=== PATIENT | male | born 1940 | race Hispanic/Latino ===

== ENCOUNTER → 2017-09-24 | Outpatient (CLI) | payer OTHER ==
[~2017-09-24] MED LIST: ASPI-1005 PO; ATOR40TA71 PO; FURO20TA4 PO; GLIM2TAB3 PO; ISOS60TA4 PO; LOSA25TA21 PO; METO50TA18 PO; SAWP1CAP PO; TAMS0.4C32 PO; TYL3 PO
== END | disposition home or self-care (01) ==
LOC: SHCH 12:41
PROVIDERS: ATTEND Internal Medicine Cardiovascular Disease
DX: I35.0 Nonrheumatic aortic (valve) stenosis (principal); I34.0 Nonrheumatic mitral (valve) insufficiency
CPT/HCPCS: 93306

== ENCOUNTER → 2017-10-08 | Outpatient (CLI) | payer OTHER | END | disposition home or self-care (01) | LOC: SHCH 14:54 | PROVIDERS: ATTEND Internal Medicine Cardiovascular Disease | DX: I82.409 Acute embolism and thrombosis of unspecified deep veins of unspecified lower extremity (principal) | CPT/HCPCS: 93971 ==

== ENCOUNTER → 2018-08-19 | Outpatient (CLI) | payer OTHER ==
[~2018-08-19] MED LIST changes: -FURO20TA4 PO; -LOSA25TA21 PO; +LOSA25TA41 PO; -TYL3 PO
== END | disposition home or self-care (01) ==
LOC: OIH 10:08
PROVIDERS: ATTEND Internal Medicine
DX: I10 Essential (primary) hypertension (principal); M47.815 Spondylosis without myelopathy or radiculopathy, thoracolumbar region
CPT/HCPCS: 71046

== ENCOUNTER 2019-01-06 15:19 | Inpatient (IN) | payer OTHER ==
[2019-01-05 23:55] VITALS: BP 127/72
[~2019-01-06] VITALS: Ht 170.2 cm; Wt 84.6 kg
[2019-01-06] MEDS ORDERED: ASPIRIN 325 MG TABLET ONE (15:35)
[2019-01-06 15:56] LABS: BASOPHILS % (AUTO) 1.1 % (0.0-5.0); EOSINOPHILS % (AUTO) 1.6 % (0.0-8.0); HEMATOCRIT 38.5 % (42-54); LYMPHOCYTES % (AUTO) 26.5 % (21.0-51.0); MEAN CORPUSCULAR HEMOGLOBIN 29.6 pg (27.0-33.0); MEAN CORPUSCULAR HGB CONC 32.6 g/dL (32.0-36.0); MEAN CORPUSCULAR VOLUME 90.8 fL (79-99); MONOCYTES % (AUTO) 7.3 % (3.0-13.0); NEUTROPHILS % (AUTO) 63.5 % (40.0-77.0); PLATELET COUNT (AUTO) 198 K/uL (130-400); RED BLOOD CELL COUNT(AUTO) 4.24 MIL/uL (4.50-6.20); RED CELL DISTRIBUTION WIDTH 15.2 % (11.0-15.5); WHITE BLOOD COUNT (AUTO) 8.3 K/uL (4.8-10.8)
[2019-01-06 16:04] LABS: INR 1.05 (0.85-1.15); PARTIAL THROMBOPLASTIN TIME 26.4 SEC (26.3-35.5)
[2019-01-06 16:13] LABS: POTASSIUM 5.1 mmol/L (3.5-5.1)
[2019-01-06 16:21] LABS: B-TYPE NATRIURETIC PEPTIDE 1720 pg/mL (0-100)
[2019-01-06 16:24] LABS: ALBUMIN 3.7 g/dL (3.5-5.0); BILIRUBIN,TOTAL 0.6 mg/dL (0.2-1.0); TOTAL PROTEIN, SERUM 7.3 g/dL (6.0-8.3)
[2019-01-06] MEDS ORDERED: FUROSEMIDE 10 MG/ML 4ML VIAL ONE (16:27)
[2019-01-06 23:05] VITALS: BP 127/72
[2019-01-07 00:36] LABS: TROPONIN I 0.04 ng/mL (0.00-0.06)
[2019-01-07] MEDS ORDERED: FURO40TA5 PO (00:47)
[2019-01-07] MEDS ORDERED: CLON0.5T12 PO (00:47)
[2019-01-07] MEDS ORDERED: METO-391 PO (00:47)
[2019-01-07 04:00] VITALS: BP 118/68
[2019-01-07] MEDS: FUROSEMIDE 10 MG/ML 4ML VIAL IVP SCH ×2 (04:15→15:12)
[2019-01-07 05:23] LABS: HEMATOCRIT 38.5 % (42-54); MEAN CORPUSCULAR HEMOGLOBIN 30.5 pg (27.0-33.0); MEAN CORPUSCULAR HGB CONC 33.4 g/dL (32.0-36.0); MEAN CORPUSCULAR VOLUME 91.2 fL (79-99); PLATELET COUNT (AUTO) 181 K/uL (130-400); RED BLOOD CELL COUNT(AUTO) 4.22 MIL/uL (4.50-6.20); RED CELL DISTRIBUTION WIDTH 15.2 % (11.0-15.5); WHITE BLOOD COUNT (AUTO) 8.9 K/uL (4.8-10.8)
[2019-01-07 05:49] LABS: TROPONIN I 0.05 ng/mL (0.00-0.06)
[2019-01-07 05:50] LABS: B-TYPE NATRIURETIC PEPTIDE 1700 pg/mL (0-100)
[2019-01-07 06:35] LABS: CREATININE 1.9 mg/dL (0.5-1.5); POTASSIUM 4.3 mmol/L (3.5-5.1)
[2019-01-07 07:53] VITALS: BP 111/66
[2019-01-07 11:31] VITALS: BP 123/76
--- NOTE | 2019-01-07 11:57 | NUR ---
MD ELVIRA WOODS, VISITED WITH PATIENT. POC DISCUSSED. NEW ORDERS RECEIVED AND CARRIED OUT. PT WILL STAY ONE MORE DAY FOR OBS. 2DECHO CANCELLED. WILL CONTINUE TO MONITOR CLOSELY.
[2019-01-07] MEDS ORDERED: ASPIRIN 81MG TAB.CHEW PO SCH (12:30)
--- NOTE | 2019-01-07 15:33 | NUR ---
DCP CM met with pt discussed dc plans. Pt is independent prior to admission, lives at home with spouse and daughter. Denies any equipments/services. Pt feels safe to go back home, daughter able to assist with transportation and needs as necessary. DC plan to home once stable. CM to cont to follow up. Addendum: 01/07/19 at 1536 by HERIBERTO CAMILO LVN CM Amended: Links added.
[2019-01-07 16:03] VITALS: BP 103/59
[2019-01-07 20:00] VITALS: BP 98/66
[2019-01-08] VITALS (7 sets, daily range): BP systolic 94–111; BP diastolic 56–78
[2019-01-08 04:51] LABS: CREATININE 1.8 mg/dL (0.5-1.5); POTASSIUM 3.8 mmol/L (3.5-5.1)
[2019-01-08] MEDS: FUROSEMIDE 10 MG/ML 4ML VIAL IVP SCH ×2 (05:24→16:46)
[2019-01-08] MEDS: **HM** TOPROL XL 50MG PO SCH ×2 (09:00→21:00)
[2019-01-08] MEDS: ATORVASTATIN CALCIUM 40 MG TABLET PO SCH (09:49)
[2019-01-08] MEDS: ISOSORBIDE MONO 60 MG TAB.SR PO SCH (09:49)
[2019-01-08] MEDS: LOSARTAN 50 MG TABLET PO SCH (09:50)
[2019-01-09 04:30] VITALS: BP 97/60
[2019-01-09 06:24] LABS: BASOPHILS % (AUTO) 0.8 % (0.0-5.0); EOSINOPHILS % (AUTO) 2.9 % (0.0-8.0); HEMATOCRIT 36.1 % (42-54); LYMPHOCYTES % (AUTO) 31.8 % (21.0-51.0); MEAN CORPUSCULAR HEMOGLOBIN 30.2 pg (27.0-33.0); MEAN CORPUSCULAR HGB CONC 33.4 g/dL (32.0-36.0); MEAN CORPUSCULAR VOLUME 90.3 fL (79-99); MONOCYTES % (AUTO) 8.3 % (3.0-13.0); NEUTROPHILS % (AUTO) 56.2 % (40.0-77.0); PLATELET COUNT (AUTO) 196 K/uL (130-400); RED CELL DISTRIBUTION WIDTH 14.8 % (11.0-15.5); WHITE BLOOD COUNT (AUTO) 7.3 K/uL (4.8-10.8)
[2019-01-09 06:44] LABS: ALBUMIN 3.3 g/dL (3.5-5.0); BILIRUBIN,TOTAL 0.7 mg/dL (0.2-1.0); CREATININE 1.9 mg/dL (0.5-1.5); POTASSIUM 3.8 mmol/L (3.5-5.1); TOTAL PROTEIN, SERUM 6.6 g/dL (6.0-8.3)
[2019-01-09 07:39] VITALS: BP 99/70
[2019-01-09] MEDS: **HM** TOPROL XL 50MG PO SCH ×2 (09:00→21:00)
[2019-01-09] MEDS: LOSARTAN 50 MG TABLET PO SCH (10:43)
[2019-01-09] MEDS: ACETYLCYSTEINE 600 MG CAPSULE PO SCH ×3 (10:43→21:23)
[2019-01-09] MEDS: ISOSORBIDE MONO 60 MG TAB.SR PO SCH (10:44)
[2019-01-09] MEDS: FUROSEMIDE 40 MG TABLET PO SCH ×2 (10:44→18:03)
[2019-01-09] MEDS: ATORVASTATIN CALCIUM 40 MG TABLET PO SCH (10:44)
[2019-01-09 11:06] VITALS: BP 99/45
[2019-01-09 15:46] VITALS: BP 97/62
[2019-01-09 19:53] VITALS: BP 100/57
--- NOTE | 2019-01-09 21:10 | NUR ---
INCIDENTAL FINDING US REPORTED A INCIDENTAL FINDING OF A THROMBUS TO THE RIGHT INTERNAL JUGULAR VEIN-MADE DR Abraham GRIMES AWARE-STATED WILL WAIT FOR RADIOLOGIST REPORT-NO NEW ORDERS RECEIVED
[2019-01-09 23:34] VITALS: BP 97/53
[2019-01-10 04:03] VITALS: BP 85/57
[2019-01-10 07:06] LABS: HEMATOCRIT 37.5 % (42-54); MEAN CORPUSCULAR HEMOGLOBIN 30.3 pg (27.0-33.0); MEAN CORPUSCULAR HGB CONC 33.5 g/dL (32.0-36.0); MEAN CORPUSCULAR VOLUME 90.6 fL (79-99); NUCLEATED RED BLOOD CELLS 0.1 % (0.0-0.19); PLATELET COUNT (AUTO) 175 K/uL (130-400); RED BLOOD CELL COUNT(AUTO) 4.14 MIL/uL (4.50-6.20); RED CELL DISTRIBUTION WIDTH 14.9 % (11.0-15.5); WHITE BLOOD COUNT (AUTO) 6.6 K/uL (4.8-10.8)
[2019-01-10 07:39] LABS: CARBON DIOXIDE 25 mmol/L (21-32); CHLORIDE 104 mmol/L (101-111); CREATINE KINASE, TOTAL 125 U/L (21-232); CREATININE 1.8 mg/dL (0.5-1.5); GLOMERULAR FILTR. RATE CALC 39 mL/min (>60); GLUCOSE,RANDOM 100 mg/dL (70-105); MYOGLOBIN 197 ng/mL (10-92); POTASSIUM 3.7 mmol/L (3.5-5.1); SODIUM SERUM 139 mmol/L (136-145); TROPONIN I < 0.04 ng/mL (0.00-0.06); UREA NITROGEN, BLOOD 59 mg/dL (7-18)
[2019-01-10 07:53] VITALS: BP 91/54
[2019-01-10 07:56] LABS: INR 1.09 (0.85-1.15); PARTIAL THROMBOPLASTIN TIME 26.5 SEC (26.3-35.5); PROTHROMBIN TIME 11.4 SEC (9.6-11.6)
[2019-01-10] MEDS: **HM** TOPROL XL 50MG PO SCH ×2 (09:00→21:00)
[2019-01-10] MEDS: ACETYLCYSTEINE 600 MG CAPSULE PO SCH ×2 (09:33→22:16)
[2019-01-10] MEDS: FUROSEMIDE 40 MG TABLET PO SCH ×2 (09:33→17:00)
[2019-01-10] MEDS: ATORVASTATIN CALCIUM 40 MG TABLET PO SCH (09:33)
[2019-01-10] MEDS: ISOSORBIDE MONO 60 MG TAB.SR PO SCH (09:33)
[2019-01-10] MEDS: LOSARTAN 50 MG TABLET PO SCH (09:33)
[2019-01-10 11:26] VITALS: BP 109/61
[2019-01-10 16:00] VITALS: BP 90/54
[2019-01-10] MEDS ORDERED: NITROGLYCERIN 5 MG/ML 10 ML VIAL IV ONE (16:27)
[2019-01-10] MEDS ORDERED: IOHEXOL 350 MG/ML 100ML INFUS..BTL IV ONE (16:27)
[2019-01-10] MEDS ORDERED: LIDOCAINE HCL 2% 20ML ONE (16:27)
--- NOTE | 2019-01-10 16:35 | NUR ---
PATIENT TRANSFERRED TO LUNCH TRUCK DRIVER DR. GRIMES TO PERFORM RIGHT / LEFT HEART CATH.
[2019-01-10] MEDS ORDERED: DOBUTAMINE 250MG/D5 250ML 250 ML IV ONE (18:01)
[2019-01-10] MEDS ORDERED: HEPARIN SODIUM 1000UNIT/ML 10ML VIAL ONE (18:17)
[2019-01-10] MEDS ORDERED: BIVALIRUDIN 250 MG/VIAL IV ONE (18:57)
[2019-01-10] MEDS ORDERED: ASPIRIN 325MG EC TAB 325 MG TABLET.DR PO ONE (19:02)
[2019-01-10] MEDS ORDERED: CLOPIDOGREL BISULFATE 300 MG TAB ONE (19:02)
[2019-01-10] MEDS ORDERED: MORPHINE SULFATE 4 MG/1ML SYG ONE (19:09)
[2019-01-10] MEDS ORDERED: ONDANSETRON HCL 4 MG/2 ML VIAL IVP PRN (20:00)
[2019-01-10] MEDS ORDERED: ACETAMINOPHEN-CODEINE 300/30MG TAB PO PRN ×2 (20:00)
[2019-01-10] MEDS ORDERED: CLOPIDOGREL BISULFATE 300 MG TAB PO SCH (20:00)
[2019-01-10] MEDS ORDERED: DOPAMINE HCL 400 MG/D5%-WATER 250 ML IV ONE (20:19)
[2019-01-10] MEDS ORDERED: DOPAMINE HCL 800 MG in SODIUM CHLORIDE 0.9% 240 ML IV SCH (20:30)
[2019-01-10 20:45] VITALS: BP 113/55
[2019-01-10] MEDS: FUROSEMIDE 10 MG/ML 4ML VIAL IV SCH (22:17)
[2019-01-10 23:30] VITALS: BP 117/60
[2019-01-11 04:11] LABS: CREATININE 1.8 mg/dL (0.5-1.5); POTASSIUM 4.2 mmol/L (3.5-5.1)
[2019-01-11 05:10] VITALS: BP 104/65
[2019-01-11 07:58] VITALS: BP 106/61
[2019-01-11] MEDS ORDERED: ASPIRIN 81MG TAB.CHEW PO SCH (09:00)
[2019-01-11] MEDS ORDERED: CLOPIDOGREL BISULFATE 75 MG TAB PO SCH (09:00)
[2019-01-11] MEDS: **HM** TOPROL XL 50MG PO SCH (09:00)
[2019-01-11] MEDS: ATORVASTATIN CALCIUM 40 MG TABLET PO SCH (09:05)
[2019-01-11] MEDS: ACETYLCYSTEINE 600 MG CAPSULE PO SCH (09:05)
[2019-01-11] MEDS: FUROSEMIDE 10 MG/ML 4ML VIAL IV SCH (09:06)
[2019-01-11 11:50] VITALS: BP 116/51
[2019-01-11 15:33] VITALS: BP 129/59
--- NOTE | 2019-01-11 16:18 | NUR ---
PER DR SOL AND DR GRIMES, PATIENT MAY BE DISCHARGED HOME AT THIS TIME; DR GRIMES STATED HE IS ALREADY AWARE OF PATIENT'S THROMBUS TO RIGHT IJ; FOLLOW UP APPOINTMENTS AND PRESCRIPTIONS TO BE GIVEN TO PATIENT BEFORE DISCHARGE TODAY
--- NOTE | 2019-01-11 18:30 | NUR ---
PATIENT DISCHARGED HOME WITH PRESCRIPTIONS AND APPT TO SEE DR GRIMES; PATIENT TO CALL OFFICE TO FOLLOW UP WITH DR SOL IN 3-4 DAYS; PIVX2 AND TELEPACK REMOVED. ALL QUESTIONS ANSWERED.
== END 2019-01-11 19:01 | disposition home or self-care (01) | DRG 246 ==
LOC: EDH 15:19 → OBSVTOIN 18:25 → EDHIP 18:25 → 3DH 23:39 → 2DH 01-10 21:00
PROVIDERS: ADMIT Internal Medicine; ATTEND Internal Medicine
PROC: 027034Z Dilation of Coronary Artery, One Artery with Drug-eluting Intraluminal Device, Percutaneous Approach (ICD-10-PCS; principal; 2019-01-10)
PROC: 4A023N8 Measurement of Cardiac Sampling and Pressure, Bilateral, Percutaneous Approach (ICD-10-PCS; 2019-01-10)
PROC: B2111ZZ Fluoroscopy of Multiple Coronary Arteries using Low Osmolar Contrast (ICD-10-PCS; 2019-01-10)
PROC: B2181ZZ Fluoroscopy of Left Internal Mammary Bypass Graft using Low Osmolar Contrast (ICD-10-PCS; 2019-01-10)
PROC: B2121ZZ Fluoroscopy of Single Coronary Artery Bypass Graft using Low Osmolar Contrast (ICD-10-PCS; 2019-01-10)
DX: T82.855A Stenosis of coronary artery stent, initial encounter (principal); I50.43 Acute on chronic combined systolic (congestive) and diastolic (congestive) heart failure; I13.0 Hypertensive heart and chronic kidney disease with heart failure and stage 1 through stage 4 chronic kidney disease, or unspecified chronic kidney disease; N18.4 Chronic kidney disease, stage 4 (severe); N17.9 Acute kidney failure, unspecified; I25.10 Atherosclerotic heart disease of native coronary artery without angina pectoris; E11.22 Type 2 diabetes mellitus with diabetic chronic kidney disease; I25.5 Ischemic cardiomyopathy; E78.5 Hyperlipidemia, unspecified; I08.0 Rheumatic disorders of both mitral and aortic valves; I27.20 Pulmonary hypertension, unspecified; I49.3 Ventricular premature depolarization; T50.2X5A Adverse effect of carbonic-anhydrase inhibitors, benzothiadiazides and other diuretics, initial encounter; Y83.1 Surgical operation with implant of artificial internal device as the cause of abnormal reaction of the patient, or of later complication, without mention of misadventure at the time of the procedure; Z79.899 Other long term (current) drug therapy; Z87.891 Personal history of nicotine dependence; Z91.11 Patient's noncompliance with dietary regimen; Z91.14 Patient's other noncompliance with medication regimen; Z91.19 Patient's noncompliance with other medical treatment and regimen; Z95.810 Presence of automatic (implantable) cardiac defibrillator; Z95.1 Presence of aortocoronary bypass graft; Y92.89 Other specified places as the place of occurrence of the external cause
CPT/HCPCS: 36415; 71045; 80048; 80053; 82550; 82948; 83874; 83880; 84484; 85025; 85027; 85610; 85730; 93005; 93306; 93461; 93463; 93880; 93925; 99291; C1725; C1760; C1769; C1887; C1893; C1894; C9604; G0378; J0583; J1250; J1265; J1644; J1940; J2270; J2405; J3490; Q9967

== ENCOUNTER 2019-02-07 06:31 | Day surgery (SDC) | payer OTHER ==
[~2019-02-07 06:31] MED LIST changes: -ASPI-1005 PO; +CLON0.5T12 PO; -ISOS60TA4 PO; +METO-391 PO; -METO50TA18 PO; -SAWP1CAP PO; +SODIUM CHLORIDE 0.9% 1000ML 1,000 ML IV ONE
[2019-02-07 07:02] VITALS: BP 96/55
--- NOTE | 2019-02-07 07:11 | NUR ---
SKIN ASSESSMENT EDEMA NOTED TO BILATERAL LOWER EXTREMITIES. 1+ EDEMA NOTED. Addendum: 02/07/19 at 0721 by KAYLEIGH HIALRIO RN RN Amended: Links added.
--- NOTE | 2019-02-07 11:30 | NUR ---
CT PT TAKEN TO CT DEPT BY PRIVATE EQUITY ANALYST.
[2019-02-07] MEDS ORDERED: IOHEXOL 350 MG/ML 100ML INFUS..BTL IV ONE (11:43)
[2019-02-07 13:30] VITALS: BP 104/65
--- NOTE | 2019-02-07 13:30 | NUR ---
PT PT RETURNED FROM CT DEPT. AAOX3. DENIES ANY PROBLEMS. AT BEDSIDE. LUNG SOUNDS CLEAR TO AUSCULTATION
== END 2019-02-07 13:50 | disposition home or self-care (01) ==
LOC: DAH 06:31
PROVIDERS: ATTEND Internal Medicine Cardiovascular Disease
DX: I25.5 Ischemic cardiomyopathy (principal); J90 Pleural effusion, not elsewhere classified; I25.10 Atherosclerotic heart disease of native coronary artery without angina pectoris; I35.0 Nonrheumatic aortic (valve) stenosis; Z95.1 Presence of aortocoronary bypass graft
CPT/HCPCS: 74174; 75574; 82948; J7030; Q9967; 96360; 96361

== ENCOUNTER 2019-02-08 08:14 | Observation (INO) | payer OTHER ==
[~2019-02-08] VITALS: Ht 170.2 cm; Wt 83.1 kg
[~2019-02-08 08:14] MED LIST changes: -SODIUM CHLORIDE 0.9% 1000ML 1,000 ML IV ONE
[2019-02-08] MEDS ORDERED: ASPIRIN 325 MG TABLET ONE (08:34)
[2019-02-08 08:44] LABS: BASOPHILS % (AUTO) 0.8 % (0.0-5.0); EOSINOPHILS % (AUTO) 1.9 % (0.0-8.0); HEMATOCRIT 35.6 % (42-54); LYMPHOCYTES % (AUTO) 23.8 % (21.0-51.0); MEAN CORPUSCULAR HEMOGLOBIN 30.3 pg (27.0-33.0); MEAN CORPUSCULAR HGB CONC 33.6 g/dL (32.0-36.0); MONOCYTES % (AUTO) 6.2 % (3.0-13.0); NEUTROPHILS % (AUTO) 67.3 % (40.0-77.0); PLATELET COUNT (AUTO) 147 K/uL (130-400); RED BLOOD CELL COUNT(AUTO) 3.95 MIL/uL (4.50-6.20); RED CELL DISTRIBUTION WIDTH 14.6 % (11.0-15.5); WHITE BLOOD COUNT (AUTO) 6.6 K/uL (4.8-10.8)
[2019-02-08 08:52] LABS: POTASSIUM 4.2 mmol/L (3.5-5.1)
[2019-02-08 08:57] LABS: ALBUMIN 3.7 g/dL (3.5-5.0); BILIRUBIN,TOTAL 0.7 mg/dL (0.2-1.0)
[2019-02-08] MEDS ORDERED: NITROGLYCERIN 50 MG/D5% WATER 1 BOT ONE (09:04)
[2019-02-08 09:13] LABS: APPEARANCE,URINE Clear (CLEAR); BILIRUBIN,URINE Negative (NEGATIVE); COLOR,URINE Yellow (YELLOW); GLUCOSE, URINE (UA) Negative (NEGATIVE); KETONES,URINE Negative (NEGATIVE); LEUKOCYTE ESTERASE ,URINE Negative (NEGATIVE); NITRATE,URINE Negative (NEGATIVE); OCCULT BLOOD,URINE Small (NEGATIVE); PROTEIN,URINE Negative (NEGATIVE)
[2019-02-08 09:15] LABS: INR 1.09 (0.85-1.15); PARTIAL THROMBOPLASTIN TIME 27.1 SEC (26.3-35.5); PROTHROMBIN TIME 11.4 SEC (9.6-11.6)
[2019-02-08 09:22] LABS: B-TYPE NATRIURETIC PEPTIDE 1290 pg/mL (0-100)
[2019-02-08 09:41] LABS: BACTERIA,URINE Rare /HPF (None Seen); RBC,URINE 0-1 /HPF (0-1); SQUAMOUS EPITHELIAL CELL,UR Rare /HPF (0-2); WBC,URINE 0-1 /HPF (0-1)
[2019-02-08] MEDS ORDERED: FUROSEMIDE 10 MG/ML 2ML VIAL ONE (09:43)
[2019-02-08] MEDS ORDERED: NITROGLYCERIN 1GM/1 INCH PACKET TD ONE (11:36)
[2019-02-08 22:13] VITALS: BP 106/84
--- NOTE | 2019-02-08 22:13 | NUR ---
NURSING NOTE PT ARRIVED TO UNIT FROM ER. PT SET UP TO OXYGEN 2L NC. PT DENIES SOB AT THIS TIME ONLY WITH EXERTION. PT UNABLE TO LET ME KNOW HOME MEDICATIONS TAKING BECAUSE HIS DAUGHTER IS THE ONE RESPONSIBLE FOR THE MEDICATIONS AND KNOWS WHAT HE TAKES. MEDICATIONS AT BEDSIDE WITH PT, DAUGHTER TO COME TOMORROW TO DISCUSS THE MEDICATIONS.
[2019-02-09] VITALS: BP_SYST 111; BP_SYST 119; BP_DIAS 68; BP_DIAS 76
[2019-02-09] MEDS: FUROSEMIDE 10 MG/ML 4ML VIAL IVP SCH ×3 (00:55→11:15)
[2019-02-09 04:08] VITALS: BP 93/55
[2019-02-09 05:51] LABS: HEMATOCRIT 34.9 % (42-54); MEAN CORPUSCULAR HEMOGLOBIN 30.3 pg (27.0-33.0); MEAN CORPUSCULAR HGB CONC 33.6 g/dL (32.0-36.0); NUCLEATED RED BLOOD CELLS 0.1 % (0.0-0.19); PLATELET COUNT (AUTO) 142 K/uL (130-400); RED BLOOD CELL COUNT(AUTO) 3.88 MIL/uL (4.50-6.20); RED CELL DISTRIBUTION WIDTH 14.4 % (11.0-15.5)
[2019-02-09 05:55] LABS: CREATININE 1.9 mg/dL (0.5-1.5); POTASSIUM 3.8 mmol/L (3.5-5.1)
[2019-02-09 06:24] LABS: BASOPHILS % (MANUAL) 1 % (0-2); EOSINOPHILS % (MANUAL) 4 % (1-6); LYMPHOCYTES % (MANUAL) 31 % (22-44); MAN.DIFF COMMENT-IMPRESSION MANUAL DIFFERENTIAL; MONOCYTES % (MANUAL) 9 % (2-9); SEGMENTED NEUTROPHILS % 55 % (40-70)
[2019-02-09 06:25] LABS: PLATELET MORPHOLOGY COMMENT ADEQUATE
[2019-02-09 08:32] VITALS: BP 98/64
[2019-02-09 11:52] VITALS: BP 106/63
--- NOTE | 2019-02-09 15:55 | NUR ---
PT D/C HOME USING TEACH BACK TECHNIQUE RE; HOME MEDS, S/S TO WATCH FOR AND WHEN TO CALL MD OR 911. IV OUT INTACT, NO DISTRESS NO BLEEDING, NO SOB, AAOX3. DENIES ANY DISTRESS OR CONCERNS WILL FOLLOW UP WITH; FOLLOW UP WITH YOUR PRIMARY DOCTOR EBENEZER ON 02/17/2019 AT 09:00AM. FOLLOW UP WITH MR DORSEY CHUCK AT PM 02/14/2019 AT 11:20 AM, CALL TO SET UP AN APPOINTMENT AT PHONE; [phone]. WILL DISCUSS ABOUT POSSIBLE SURGERY IN 1 WEEK. IF HAVING SHORTNESS OF BREATH OR CHEST PAIN THAT DOES NOT RESOLVE WITH REST CALL 911. CONTINUE ALL CURRENT HOME MEDS.
== END 2019-02-09 15:55 | disposition home or self-care (01) ==
LOC: EDH 08:14 → EDHIP 10:55 → 3CH 22:38
PROVIDERS: ADMIT Internal Medicine; ATTEND Internal Medicine
DX: I13.0 Hypertensive heart and chronic kidney disease with heart failure and stage 1 through stage 4 chronic kidney disease, or unspecified chronic kidney disease (principal); N18.9 Chronic kidney disease, unspecified; I50.43 Acute on chronic combined systolic (congestive) and diastolic (congestive) heart failure; E11.22 Type 2 diabetes mellitus with diabetic chronic kidney disease; N17.9 Acute kidney failure, unspecified; E78.5 Hyperlipidemia, unspecified; I25.10 Atherosclerotic heart disease of native coronary artery without angina pectoris; I35.0 Nonrheumatic aortic (valve) stenosis; Z87.891 Personal history of nicotine dependence; Z95.1 Presence of aortocoronary bypass graft; Z95.5 Presence of coronary angioplasty implant and graft; Z79.899 Other long term (current) drug therapy
CPT/HCPCS: 36415 ×2; 71045; 80048; 80053; 81001; 82550; 82948 ×3; 83880; 84484; 85025 ×2; 85610; 85730; 93005; 96374; 96376; 99284; G0378 ×29; J1940 ×3; J3490

== ENCOUNTER 2019-03-24 03:19 | Observation (INO) | payer OTHER ==
[~2019-03-24] VITALS: Ht 170.2 cm; Wt 81.0 kg
[2019-03-24 03:10] VITALS: BP 119/64
[2019-03-24 03:47] LABS: BASOPHILS % (AUTO) 0.4 % (0.0-5.0); EOSINOPHILS % (AUTO) 0.2 % (0.0-8.0); HEMATOCRIT 34.2 % (42-54); LYMPHOCYTES % (AUTO) 16.7 % (21.0-51.0); MEAN CORPUSCULAR HEMOGLOBIN 29.1 pg (27.0-33.0); MEAN CORPUSCULAR HGB CONC 32.7 g/dL (32.0-36.0); MEAN CORPUSCULAR VOLUME 89.2 fL (79-99); MONOCYTES % (AUTO) 5.1 % (3.0-13.0); NEUTROPHILS % (AUTO) 77.6 % (40.0-77.0); NUCLEATED RED BLOOD CELLS 0.1 % (0.0-0.19); PLATELET COUNT (AUTO) 146 K/uL (130-400); RED BLOOD CELL COUNT(AUTO) 3.83 MIL/uL (4.50-6.20); RED CELL DISTRIBUTION WIDTH 15.3 % (11.0-15.5); WHITE BLOOD COUNT (AUTO) 6.8 K/uL (4.8-10.8)
[2019-03-24 03:53] LABS: CREATININE 1.6 mg/dL (0.5-1.5); POTASSIUM 4.6 mmol/L (3.5-5.1)
[2019-03-24] MEDS ORDERED: FUROSEMIDE 10 MG/ML 2ML VIAL ONE (03:56)
[2019-03-24 03:58] LABS: ALBUMIN 3.5 g/dL (3.5-5.0); BILIRUBIN,TOTAL 0.9 mg/dL (0.2-1.0); INR 1.13 (0.85-1.15); PARTIAL THROMBOPLASTIN TIME 25.2 SEC (26.3-35.5); PROTHROMBIN TIME 11.8 SEC (9.6-11.6)
[2019-03-24 04:18] LABS: B-TYPE NATRIURETIC PEPTIDE 1640 pg/mL (0-100)
[2019-03-24] MEDS ORDERED: PANT40TA25 PO (05:29)
[2019-03-24] MEDS ORDERED: METO25TA6 PO (05:29)
[2019-03-24] MEDS ORDERED: PRED20TA3 PO (05:29)
[2019-03-24] MEDS ORDERED: CLOP75TA32 PO (05:29)
[2019-03-24] MEDS ORDERED: AEC81 PO (05:29)
[2019-03-24] MEDS ORDERED: NITR0.4T50 SL (05:29)
[2019-03-24] MEDS ORDERED: NITROGLYCERIN 0.4 MG SL TAB SL SCH (05:30)
[2019-03-24] MEDS ORDERED: GLIMEPIRIDE 2 MG TABLET PO SCH (07:30)
[2019-03-24] MEDS ORDERED: PANTOPRAZOLE SODIUM 40 MG TABLET.DR PO SCH (07:30)
[2019-03-24 08:00] VITALS: BP 110/67
[2019-03-24] MEDS ORDERED: ASPIRIN 81 MG EC TAB PO SCH (09:00)
[2019-03-24] MEDS ORDERED: PREDNISONE 20 MG TABLET PO SCH (09:00)
[2019-03-24] MEDS ORDERED: TAMSULOSIN HCL 0.4 MG CAP.ER.24H PO SCH (09:00)
[2019-03-24] MEDS ORDERED: CLOPIDOGREL BISULFATE 75 MG TAB PO SCH (09:00)
[2019-03-24] MEDS ORDERED: METOPROLOL TARTRATE 25 MG TAB PO SCH (09:00)
[2019-03-24 12:00] VITALS: BP 101/60
[2019-03-24] MEDS ORDERED: FUROSEMIDE 10 MG/ML 4ML VIAL IVP SCH (12:00)
--- NOTE | 2019-03-24 12:50 | NUR ---
DR CARTER CLAYTON SPOKE TO PATIENT AND NURSE SAYS IF PATIENT FEELS GOOD AND WALKS AROUND UNIT OK TO GO HOME, IN THE AFTERNOON AFTER DINNER. PATIENT VERBALIZED UNDERSTANDING.
--- NOTE | 2019-03-24 13:07 | NUR ---
DCP CM met with pt discussed dc plans. Pt is independent prior to admission, lives at home with spouse and daughter. Denies any equipments/services. Pt feels safe to go back home, spouse and daughter able to assist with transportation and needs as necessary. DC plan to home once stable. CM to cont to follow up. Addendum: 03/24/19 at 1308 by HERIBERTO CAMILO LVN CM Amended: Links added.
--- NOTE | 2019-03-24 16:50 | NUR ---
DISCHARGE DR MACHADO AND PCP DR KOCH, ORDER GIVEN FOR DISCHARGE HOME. ORDER NOTED AND CARRIED OUT.
[2019-03-24 16:56] VITALS: BP 101/60
== END 2019-03-24 17:20 | disposition home or self-care (01) ==
LOC: EDH 03:19 → EDHIP 04:28 → 3AH 04:41
PROVIDERS: ADMIT Internal Medicine; ATTEND Internal Medicine
DX: R06.03 Acute respiratory distress (principal); I11.0 Hypertensive heart disease with heart failure; I50.9 Heart failure, unspecified; I25.10 Atherosclerotic heart disease of native coronary artery without angina pectoris; E78.5 Hyperlipidemia, unspecified; E11.9 Type 2 diabetes mellitus without complications; Z95.1 Presence of aortocoronary bypass graft; Z95.2 Presence of prosthetic heart valve; Z95.5 Presence of coronary angioplasty implant and graft; Z95.810 Presence of automatic (implantable) cardiac defibrillator; Z87.891 Personal history of nicotine dependence
CPT/HCPCS: 36415; 71045; 80053; 82550; 82948; 83880; 84484; 85025; 85610; 85730; 93005; 96374; 99291; G0378 ×13; J1940 ×2

== ENCOUNTER → 2019-08-30 | Outpatient (CLI) | payer OTHER ==
[~2019-08-30] MED LIST changes: +AEC81 PO; -ATOR40TA71 PO; -CLON0.5T12 PO; +CLON0.5T4 PO; +CLOP75TA32 PO; -GLIM2TAB3 PO; +GLIM2TAB30 PO; -LOSA25TA41 PO; -METO-391 PO; +METO25TA6 PO; +NITR0.4T50 SL; +PANT40TA25 PO; +PRED20TA3 PO
== END | disposition home or self-care (01) ==
LOC: OIH 11:32
PROVIDERS: ATTEND Internal Medicine
DX: M47.814 Spondylosis without myelopathy or radiculopathy, thoracic region (principal); M25.78 Osteophyte, vertebrae; M48.04 Spinal stenosis, thoracic region; Z95.0 Presence of cardiac pacemaker; Z98.890 Other specified postprocedural states; Z95.2 Presence of prosthetic heart valve
CPT/HCPCS: 72070

== ENCOUNTER → 2019-10-12 | Outpatient (CLI) | payer OTHER | END | disposition home or self-care (01) | LOC: OIH 13:08 | PROVIDERS: ATTEND Internal Medicine | DX: M17.11 Unilateral primary osteoarthritis, right knee (principal) | CPT/HCPCS: 73560 ==

== ENCOUNTER 2020-01-20 03:35 | Observation (INO) | payer OTHER ==
[2020-01-20] MEDS ORDERED: DEXTROSE 50%-WATER 50 ML DISP.SYRIN IV ONE ×2 (03:52→06:08)
[2020-01-20 04:12] LABS: BASOPHILS % (AUTO) 0.4 % (0.0-5.0); EOSINOPHILS % (AUTO) 1.1 % (0.0-8.0); HEMATOCRIT 36.7 % (42-54); LYMPHOCYTES % (AUTO) 19.4 % (21.0-51.0); MEAN CORPUSCULAR HEMOGLOBIN 28.5 pg (27.0-33.0); MEAN CORPUSCULAR HGB CONC 31.9 g/dL (32.0-36.0); MEAN CORPUSCULAR VOLUME 89.5 fL (79-99); MONOCYTES % (AUTO) 6.4 % (3.0-13.0); NEUTROPHILS % (AUTO) 72.3 % (40.0-77.0); PLATELET COUNT (AUTO) 172 K/uL (130-400); RED CELL DISTRIBUTION WIDTH 15.1 % (11.0-15.5); WHITE BLOOD COUNT (AUTO) 7.2 K/uL (4.8-10.8)
[2020-01-20 04:15] LABS: APPEARANCE,URINE Clear (CLEAR); BILIRUBIN,URINE Negative (NEGATIVE); COLOR,URINE Yellow (YELLOW); GLUCOSE, URINE (UA) Negative (NEGATIVE); KETONES,URINE Negative (NEGATIVE); LEUKOCYTE ESTERASE ,URINE Negative (NEGATIVE); NITRATE,URINE Negative (NEGATIVE); OCCULT BLOOD,URINE Trace (NEGATIVE); PROTEIN,URINE Negative (NEGATIVE); UROBILINOGEN,URINE 0.2 mg/dL (0.2-1.0)
[2020-01-20 04:22] LABS: BACTERIA,URINE None Seen /HPF (None Seen); RBC,URINE 0-1 /HPF (0-1); SQUAMOUS EPITHELIAL CELL,UR Rare /HPF (0-2); WBC,URINE None Seen /HPF (0-1)
[2020-01-20 04:24] LABS: AMPHET/METH SCREEN,URINE NEGATIVE (NEGATIVE); BARBITURATE SCREEN, URINE NEGATIVE (NEGATIVE); BENZODIAZEPINES SCREEN,URINE NEGATIVE (NEGATIVE); CANNABINOID SCREEN,URINE NEGATIVE (NEGATIVE); COCAINE SCREEN,URINE NEGATIVE (NEGATIVE); OPIATE SCREEN,URINE NEGATIVE (NEGATIVE); PHENCYCLIDINE SCREEN,URINE NEGATIVE (NEGATIVE)
[2020-01-20 04:29] LABS: INR 1.01 (0.85-1.15); PROTHROMBIN TIME 10.9 SEC (9.6-11.6)
[2020-01-20 04:33] LABS: ALBUMIN 4.1 g/dL (3.5-5.0); BILIRUBIN,TOTAL 0.5 mg/dL (0.2-1.0); CREATININE 2.1 mg/dL (0.5-1.5); POTASSIUM 4.1 mmol/L (3.5-5.1); TOTAL PROTEIN, SERUM 7.3 g/dL (6.0-8.3)
[2020-01-20] MEDS ORDERED: INSULIN R PO SS1 SQ SCH (07:30)
[2020-01-20] MEDS ORDERED: METO-408 PO (11:14)
[2020-01-20] MEDS ORDERED: ATOR40TA71 PO (11:14)
== END 2020-01-20 13:26 | disposition home or self-care (01) ==
LOC: EDH 03:35 → EDHIP 06:25
PROVIDERS: ADMIT Internal Medicine; ATTEND Internal Medicine
DX: E11.649 Type 2 diabetes mellitus with hypoglycemia without coma (principal); I11.0 Hypertensive heart disease with heart failure; I50.9 Heart failure, unspecified; I25.810 Atherosclerosis of coronary artery bypass graft(s) without angina pectoris; E78.5 Hyperlipidemia, unspecified
CPT/HCPCS: 36415; 71045; 80053; 80305; 81001; 82550; 82948 ×6; 83721; 84484; 85025; 85610; 85730; 93005; 99285; G0378 ×7; J7070 ×2

== ENCOUNTER → 2020-03-07 | Outpatient (CLI) | payer OTHER ==
[~2020-03-07] MED LIST changes: +ATOR40TA71 PO; -CLON0.5T4 PO; +METO-408 PO; -METO25TA6 PO; -PANT40TA25 PO; -PRED20TA3 PO
== END | disposition home or self-care (01) ==
LOC: SHCH 08:35
PROVIDERS: ATTEND Internal Medicine Cardiovascular Disease
DX: I08.1 Rheumatic disorders of both mitral and tricuspid valves (principal); Z95.2 Presence of prosthetic heart valve
CPT/HCPCS: 93306; 93356

== ENCOUNTER → 2021-01-14 | Outpatient (CLI) | payer OTHER | END | disposition home or self-care (01) | LOC: OIH 14:42 | PROVIDERS: ATTEND Internal Medicine | DX: M79.671 Pain in right foot (principal); R05 Cough; I51.7 Cardiomegaly | CPT/HCPCS: 71045; 73620 ==

== ENCOUNTER → 2022-08-28 | Outpatient (CLI) | payer OTHER | END | disposition home or self-care (01) | LOC: SHCH 12:33 | PROVIDERS: ATTEND Internal Medicine Cardiovascular Disease | DX: I87.2 Venous insufficiency (chronic) (peripheral) (principal) | CPT/HCPCS: 93970 ==

== ENCOUNTER → 2023-10-23 | Outpatient (CLI) | payer OTHER | END | disposition home or self-care (01) | LOC: RAH 12:59 | PROVIDERS: ATTEND Internal Medicine | DX: I82.402 Acute embolism and thrombosis of unspecified deep veins of left lower extremity (principal); I82.4Z9 Acute embolism and thrombosis of unspecified deep veins of unspecified distal lower extremity; M79.605 Pain in left leg | CPT/HCPCS: 73620; 93971 ==

== ENCOUNTER 2024-06-02 05:51 | Day surgery (SDC) | payer OTHER, MEDICARE ==
[2024-06-01 12:44] VITALS: BP 139/71; PULSE 71; RESP 18; TEMP 97.2
[2024-06-01 12:58] LABS: BASOPHILS # (AUTO) 0.04 K/uL (0.00-0.20); BASOPHILS % (AUTO) 0.6 % (0.0-5.0); EOSINOPHILS # (AUTO) 0.19 K/uL (0.00-0.70); EOSINOPHILS % (AUTO) 2.9 % (0.0-8.0); HEMATOCRIT 31.7 % (42-54); IMMATURE GRANULOCYTE ABSOLUTE 0.02 K/uL (0-1); LYMPHOCYTES # (AUTO) 1.5 K/uL (1.0-4.8); LYMPHOCYTES % (AUTO) 23.6 % (21.0-51.0); MEAN CORPUSCULAR HEMOGLOBIN 30.1 pg (27.0-33.0); MEAN CORPUSCULAR HGB CONC 32.2 g/dL (32.0-36.0); MEAN CORPUSCULAR VOLUME 93.5 fL (79-99); MONOCYTES # (AUTO) 0.6 K/uL (0.1-1.0); MONOCYTES % (AUTO) 8.4 % (3.0-13.0); NEUTROPHILS # (AUTO) 4.2 K/uL (1.8-7.7); NEUTROPHILS % (AUTO) 64.2 % (40.0-77.0); PLATELET COUNT (AUTO) 210 K/uL (130-400); RED BLOOD CELL COUNT(AUTO) 3.39 MIL/uL (4.50-6.20); RED CELL DISTRIBUTION WIDTH 14.7 % (11.0-15.5); WHITE BLOOD COUNT (AUTO) 6.5 K/uL (4.8-10.8)
[2024-06-01 13:09] LABS: POTASSIUM 4.6 mmol/L (3.5-5.1)
[2024-06-01 13:55] LABS: INR 1.06 (0.85-1.15); PROTHROMBIN TIME 11.4 SEC (9.6-11.6)
[2024-06-01 13:56] LABS: PARTIAL THROMBOPLASTIN TIME 27.2 SEC (26.3-35.5)
[~2024-06-02] VITALS: Ht 167.6 cm; Wt 85.3 kg
[2024-06-02] VITALS (8 sets, daily range): BP systolic 103–127; BP diastolic 63–69; PULSE 75–92; RESP 14–18; TEMP 97.3–98.2
[~2024-06-02 05:51] MED LIST changes: -CLOP75TA32 PO; +FERR240T10 PO; +FOLI0.8C PO; +FURO40TA5 PO; -NITR0.4T50 SL; +SACU1TAB PO; -TAMS0.4C32 PO
[2024-06-02] MEDS ORDERED: BUPIvacaine/PF 0.25% 30ML VIAL IJ ONE (07:08)
[2024-06-02] MEDS ORDERED: LIDOCAINE HCL 1% MDV 50ML VIAL ONE (07:08)
[2024-06-02] MEDS ORDERED: ceFAZolin SODIUM 1 GM VIAL ONE (07:08)
[2024-06-02] MEDS: 0.9%NACL 1000ML 1,000 ML IV ONE (07:31)
[2024-06-02] MEDS ORDERED: FENTanyl CITRate PF 50 MCG/1 ML 2ML VIAL ONE (07:33)
[2024-06-02] MEDS ORDERED: MIDAZOLAM HCL 1 MG/ML 2ML VIAL ONE (07:33)
[2024-06-02] MEDS ORDERED: MINO100C6 PO (08:42)
[2024-06-02] MEDS ORDERED: acetaMINOPHEN WITH coDEINE 1 TAB TAB PO PRN (09:00)
[2024-06-02] MEDS ORDERED: acetaMINOPHEN 500 MG TABLET PO PRN (09:00)
== END 2024-06-02 10:40 | disposition home or self-care (01) ==
LOC: DAH 05:51
PROVIDERS: ATTEND Student in an Organized Health Care Education/Training Program
DX: Z45.02 Encounter for adjustment and management of automatic implantable cardiac defibrillator (principal); I25.5 Ischemic cardiomyopathy; I13.0 Hypertensive heart and chronic kidney disease with heart failure and stage 1 through stage 4 chronic kidney disease, or unspecified chronic kidney disease; E11.22 Type 2 diabetes mellitus with diabetic chronic kidney disease; N18.30 Chronic kidney disease, stage 3 unspecified; I50.22 Chronic systolic (congestive) heart failure; E78.5 Hyperlipidemia, unspecified; I25.10 Atherosclerotic heart disease of native coronary artery without angina pectoris; F03.90 Unspecified dementia, unspecified severity, without behavioral disturbance, psychotic disturbance, mood disturbance, and anxiety; Z82.49 Family history of ischemic heart disease and other diseases of the circulatory system; Z83.3 Family history of diabetes mellitus; Z98.890 Other specified postprocedural states; Z95.1 Presence of aortocoronary bypass graft; Z85.46 Personal history of malignant neoplasm of prostate; Z79.82 Long term (current) use of aspirin; Z79.899 Other long term (current) drug therapy
CPT/HCPCS: 80048; 85025; 85610; 85730; 36415; 93005; 33264; C1882; J3010; J0690; J7030; J0665; J2250; J3490; A4215; A6251; A4222; A4221; A4663; A4216; A6206; A6258; A4606; A4223 ×3; 99156; 99157

== ENCOUNTER 2024-08-04 20:20 | Observation (INO) | payer OTHER, MEDICARE ==
[~2024-08-04] VITALS: Ht 167.6 cm; Wt 85.7 kg
[~2024-08-04 20:20] MED LIST changes: +MINO100C6 PO
--- NOTE | 2024-08-04 20:48 | EKG ---
[facility] Test Date: 2024-08-04 Test Time: 20:45:22 Pat Name: MAYITO GONZALEZ Department: [facility] Room: Gender: M Program Aide Group Work: [id number] : [id number] Requested By: JALEN MCKENNA Order Number: [id number] Reading MD: Jose Patel Measurements Intervals [place] Rate: 75 P: 74 WA: 212 QRS: 130 QRSD: 201 T: 80 QT: 453 QTc: 506 Interpretive Statements Atrial-sensed ventricular-paced rhythm Compared to ECG 06/01/2024 12:14:33 No significant changes Electronically Signed On 08-04-2024 22:23:14 FIELD REVIEWER by Jose Patel Please click the below link to view image of tracing.
[2024-08-04 22:02] LABS: BASOPHILS # (AUTO) 0.03 K/uL (0.00-0.20); BASOPHILS % (AUTO) 0.3 % (0.0-5.0); EOSINOPHILS # (AUTO) 0.08 K/uL (0.00-0.70); EOSINOPHILS % (AUTO) 0.8 % (0.0-8.0); HEMATOCRIT 32.6 % (42-54); IMMATURE GRANULOCYTE ABSOLUTE 0.03 K/uL (0-1); LYMPHOCYTES # (AUTO) 1.4 K/uL (1.0-4.8); LYMPHOCYTES % (AUTO) 14.5 % (21.0-51.0); MEAN CORPUSCULAR HEMOGLOBIN 30.1 pg (27.0-33.0); MEAN CORPUSCULAR HGB CONC 32.8 g/dL (32.0-36.0); MEAN CORPUSCULAR VOLUME 91.8 fL (79-99); MONOCYTES # (AUTO) 0.8 K/uL (0.1-1.0); MONOCYTES % (AUTO) 8.7 % (3.0-13.0); NEUTROPHILS # (AUTO) 7.2 K/uL (1.8-7.7); NEUTROPHILS % (AUTO) 75.4 % (40.0-77.0); PLATELET COUNT (AUTO) 198 K/uL (130-400); RED BLOOD CELL COUNT(AUTO) 3.55 MIL/uL (4.50-6.20); RED CELL DISTRIBUTION WIDTH 13.4 % (11.0-15.5); WHITE BLOOD COUNT (AUTO) 9.6 K/uL (4.8-10.8)
[2024-08-04 22:09] LABS: CREATININE 1.7 mg/dL (0.5-1.3); POTASSIUM 4.2 mmol/L (3.5-5.1)
[2024-08-05 00:06] LABS: APPEARANCE,URINE CLEAR (CLEAR); BILIRUBIN,URINE NEGATIVE (NEGATIVE); COLOR,URINE LIGHT-YELLOW (YELLOW); GLUCOSE, URINE (UA) NEGATIVE (NEGATIVE); KETONES,URINE NEGATIVE (NEGATIVE); LEUKOCYTE ESTERASE ,URINE NEGATIVE Leu/uL (NEGATIVE); NITRATE,URINE NEGATIVE (NEGATIVE); OCCULT BLOOD,URINE MODERATE (NEGATIVE); PH,URINE 5.5 (5.0-8.0); PROTEIN,URINE 30 mg/dL (NEGATIVE); UROBILINOGEN,URINE 0.2 mg/dL (0.2-1.0)
[2024-08-05 00:08] LABS: ADD UA MICROSCOPIC YES
[2024-08-05 00:11] LABS: MUCUS,URINE RARE LPF (None Seen)
[2024-08-05] MEDS: HYDROcodone/APAP 5/325 1 TAB TABLET PO ONE (00:18)
[2024-08-05] MEDS: ketOROlac 30MG VIAL (30MG/ML) IVP ONE (00:18)
--- NOTE | 2024-08-05 01:13 | HMCIMG ---
US VENOUS DOPPLER UNILATERAL HISTORY: Upper extremity pain COMPARISON: None TECHNIQUE: Right upper extremity venous Doppler ultrasound study was performed. FINDINGS: The right subclavian, axillary, and brachial veins are visualized. Normal flow with augmentation and compressibilities are demonstrated. Right cephalic and basilic veins are patent. IMPRESSION: 1. No evidence of deep venous thrombosis is seen.
--- NOTE | 2024-08-05 05:20 | NUR ---
ASSISTED DR. MCKENNA WITH R ELBOW JOINT ASPIRATION PROCEDURE. PT TOLERATED PROCEDURE WELL. SAMPLE SENT TO LAB
[2024-08-05] MEDS: LIDOCAINE HCL 1% 20 ML VIAL INJ SCH (05:23)
--- NOTE | 2024-08-05 05:26 | NUR ---
PT , DANA GONZALEZ , LEAVING BEDSIDE AT THIS TIME.
--- NOTE | 2024-08-05 06:51 | ERN ---
ED Note History of Present Illness Stated Complaint: WEAK, CONFUSED,RT ARM SWELLING /PAIN Chief Complaint: Arm Swelling/Redness Time Seen by MD: 21:54 Dictation: This 84-year-old male's family member reports that he has a history of dementia with poor memory. There was an unwitnessed fall with right elbow pain sometime in the recent past. Family has noted severe weakness in the last three days much worse in the last 24 hours. He has decreased p.o. intake. They are unaware of fever, cough, vomiting or diarrhea. He does not smoke or drink. He lives at home with family Allergies: Coded Allergies: No Known Drug Allergies (Verified Allergy, 04/05/13) Home Meds Active Scripts Minocycline HCl (Minocycline HCl) 100 Mg Capsule, 1 CAP PO BID for 5 Days, #10 CAP 0 Refills Prov:VIJAYA CM MD 06/02/24 Reported Medications Folic Acid (Folic Acid) 0.8 Mg Capsule, 0.8 MG PO DAILY, CAP 06/01/24 Furosemide (Furosemide) 40 Mg Tablet, 40 MG PO DAILY, TAB 06/01/24 Sacubitril/Valsartan (Entresto 24 mg-26 mg Tablet) 24 Mg-26 Mg Tablet, 1 EACH PO BID, TAB 06/01/24 Ferrous Gluconate (Iron) 240 Mg (27 Mg Iron) Tablet, 240 MG PO DAILY, TAB 06/01/24 Atorvastatin Calcium (Atorvastatin Calcium) 40 Mg Tablet, 40 MG PO HS, TAB 01/20/20 Metoprolol Succinate (Metoprolol Succinate) 25 Mg Tab.er.24h, 25 MG PO DAILY, TAB 01/20/20 Aspirin (ASPIRIN 81 MG ECTAB) 81 Mg Ectab, 81 MG PO DAILY, TAB.EC 03/24/19 Glimepiride (Glimepiride) 2 Mg Tablet, 2 MG PO DAILY, TAB 10/02/16 Past Medical History Dictation 84-year-old male with past medical history of high blood pressure, high cholesterol, diabetes, CAD (cardiac bypass surgery), CHF presents with worsening right elbow pain. Patient states he fell over refill and since then the pain has become progressively worse in unbearable. Patient states he can not move his elbow at this time. Patient denies fevers, nausea, vomiting diaphoresis, syncope, presyncope, productive cough. Patient does report that the joint is red and swollen Past Medical History: CAD, Diabetes-Type II, High Cholesterol, Hypertension, [place], Other Additional Past Medical Hx: PROSTATE CANCER, DEFIBRILLATOR Surgical History: CABG, Pacer/AICD, Other Surgical History Other: HEART VALVE SX Review of System Dictation See HPI Initial Vital Sign VS Vital Signs Date Time Temp Pulse Resp B/P (MAP) Pulse Ox O2 Delivery O2 Flow Rate FiO2 08/04/24 20:33 98.4 75 18 141/59 100 Room Air 0 08/04/24 23:33 21 Physical Exam Dictation Acutely ill-appearing, acutely weak appearing, lungs clear to auscultation, symmetrical breath sounds, regular heart rate and rhythm, no murmurs rubs or gallops, abdomen is soft, nontender, non peritoneal, elbow is significant perfusion and erythema and inappropriate warmth. Periods pain with passive range of motion Results (Laboratory/Radiology) Laboratory/Radiology Laboratory Tests Test 08/04/24 21:52 08/04/24 23:13 08/05/24 05:12 White Blood Count 9.6 K/uL (4.8-10.8) Red Blood Count 3.55 MIL/uL (4.50-6.20) L Hemoglobin 10.7 g/dL (14.0-18.0) L Hematocrit 32.6 % (42-54) L Mean Corpuscular Volume 91.8 fL (79-99) Mean Corpuscular Hemoglobin 30.1 pg (27.0-33.0) Mean Corpuscular Hemoglobin Concent 32.8 g/dL (32.0-36.0) Red Cell Distribution Width 13.4 % (11.0-15.5) Platelet Count 198 K/uL (130-400) Mean Platelet Volume 10.5 fL (7.5-10.5) Immature Granulocyte % (Auto) 0.3 % (0-1) Neutrophils (%) (Auto) 75.4 % (40.0-77.0) Lymphocytes (%) (Auto) 14.5 % (21.0-51.0) L Monocytes (%) (Auto) 8.7 % (3.0-13.0) Eosinophils (%) (Auto) 0.8 % (0.0-8.0) Basophils (%) (Auto) 0.3 % (0.0-5.0) Neutrophils # (Auto) 7.2 K/uL (1.8-7.7) Lymphocytes # (Auto) 1.4 K/uL (1.0-4.8) Monocytes # (Auto) 0.8 K/uL (0.1-1.0) Eosinophils # (Auto) 0.08 K/uL (0.00-0.70) Basophils # (Auto) 0.03 K/uL (0.00-0.20) Absolute Immature Granulocyte (auto 0.03 K/uL (0-1) Nucleated Red Blood Cells 0.0 % (0.0-0.19) Erythrocyte Sedimentation Rate 57 MM/HR (0-20) H Sodium Level 141 mmol/L (136-145) Potassium Level 4.2 mmol/L (3.5-5.1) Chloride Level 109 mmol/L (101-111) Carbon Dioxide Level 27 mmol/L (21-32) Blood Urea Nitrogen 43 mg/dL (7-18) H Creatinine 1.7 mg/dL (0.5-1.3) H Glomerular Filtration Rate Calc 40 mL/min (>90) Random Glucose 79 mg/dL (70-105) Lactic Acid Level 1.2 mmol/L (0.8-2.5) Total Calcium 9.7 mg/dL (8.5-10.1) Total Creatine Kinase 2848 U/L (21-232) #*H Troponin I High Sensitivity 60 ng/L (4-75) C-Reactive Protein, Quantitative 108.00 mg/L (0.5-3.0) H Procalcitonin 0.12 ng/mL (0.05-0.5) Urine Color LIGHT-YELLOW (YELLOW) Urine Appearance CLEAR (CLEAR) Urine pH 5.5 (5.0-8.0) Urine Specific [place] 1.015 (1.001-1.031) Urine Protein 30 mg/dL (NEGATIVE) H Urine Glucose (UA) NEGATIVE mg/dL (NEGATIVE) Urine Ketones NEGATIVE mg/dL (NEGATIVE) Urine Occult Blood MODERATE (NEGATIVE) H Urine Nitrate NEGATIVE (NEGATIVE) Urine Bilirubin NEGATIVE mg/dL (NEGATIVE) Urine Urobilinogen 0.2 mg/dL (0.2-1.0) Urine Leukocyte Esterase NEGATIVE Marv/uL Urine RBC 2-5 /HPF (0-1) H Urine WBC 2-5 /HPF (0-1) H Urine Bacteria None /HPF (None Seen) Body Fluid Source SYNOVIAL Body Fluid Volume 10 mL Body Fluid Color ORANGE (LT YELLOW) H Body Fluid Supernatant Appearance TURBID (CLEAR) H Body Fluid WBC 96373 /cu. mm. Body Fluid RBC 24385 /cu. mm. Body Fluid Neutrophils 96.0 % Body Fluid Lymphocytes 3 % Body Fluid Monocytes % 1 % Labs Reviewed?: Yes EKG Comment: 08/04/2024; 2044 Atrial sensed rhythm 75 beats per minute, appropriate axis, appropriate intervals, nonspecific ST-T changes ED Course ED Course Orders Procedure Category Date Status Time Iv Insertion CPOE 08/04/24 Transmitted 20:38 Pulse Ox(Continuous) RT 08/04/24 Transmitted 20:38 Vital Signs Per CPOE 08/04/24 Transmitted Routine 20:38 12 Lead Ekg Tracing- EKG 08/04/24 Resulted Technical 20:38 Cbc With Differential LAB 08/04/24 Complete 20:38 Blood Cult YUE 08/04/24 In Process 20:38 Urinalysis Profile LAB 08/04/24 Complete 20:38 Culture Urine YUE 08/04/24 In Process 20:38 Creatine Kinase, Total LAB 08/04/24 Complete 20:38 Troponin I High LAB 08/04/24 Complete Sensitivity 20:38 Lactic Acid LAB 08/04/24 Complete 20:38 Basic Metabolic Panel LAB 08/04/24 Complete 20:38 Ketorolac PHA 08/05/24 Complete Tromethamine 30mg/Ml 00:00 Hydrocodone/Apap PHA 08/05/24 Complete 5/325 ([place] 5/325mg) 00:00 Crp Quantitative LAB 08/04/24 Complete 23:39 Procalcitonin LAB 08/04/24 Complete 23:39 Erythrocyte LAB 08/04/24 Complete Sedimentation Rate 23:39 Us Venous Doppler US 08/04/24 Resulted Unilateral 23:42 Lidocaine Hcl 1% 20ml PHA 08/05/24 Complete Vial (Lidocaine Hc 00:00 Body Fluid Cult W/ YUE 08/05/24 In Process Gram Stain 04:54 Body Fluid Cell Count LAB 08/05/24 Complete 06:18 Elbow Comp 3+Vws Rt RAD 08/05/24 Resulted 07:38 0.9%Nacl 1000ml (Ns PHA 08/05/24 In Process 1000ml) 09:00 1/2 Ns 1000ml (0.45% PHA 08/05/24 In Process Nacl 1000ml) 11:00 Methylprednisolone PHA 08/05/24 Complete Succ 40mg (Solu-Medro 11:00 Ceftriaxone 1g Vial PHA 08/05/24 In Process (Rocephine 1g Inj) 11:00 Cbc With Differential LAB 08/05/24 In Process 10:43 Basic Metabolic Panel LAB 08/05/24 In Process 10:43 Creatine Kinase, Total LAB 08/05/24 In Process 10:43 Heart Healthy Diet DIET 08/05/24 Transmitted Lunch Admit Orders ADM 08/05/24 Transmitted 10:57 Current Medications Medications (Trade) Dose Ordered Sig/Graham Route PRN Reason Start Time Stop Time Status Last Admin Dose Admin Acetaminophen/ Hydrocodone Bitart (NORco 5/325MG) 1 tab ONCE ONCE PO 08/05/24 00:00 08/05/24 00:01 DC 08/05/24 00:18 Ceftriaxone Sodium (ROCEphine 1G INJ) 1 gm Q24H IVPB 08/05/24 11:00 08/15/24 10:59 Ketorolac Tromethamine (toRADol) 30 mg ONCE ONCE IVP 08/05/24 00:00 08/05/24 00:01 DC 08/05/24 00:18 Lidocaine HCl (Lidocaine HCl 1% 20ml Vial) 20 ml ONCE INJ 08/05/24 00:00 08/05/24 08:51 DC 08/05/24 05:23 Methylprednisolone Sodium Succinate (Solu-medROL 40MG) 80 mg ONCE ONCE IVP 08/05/24 11:00 08/05/24 11:01 DC Sodium Chloride 1,000 ml @ 125 mls/hr Q8H IV 08/05/24 11:00 09/04/24 10:59 Sodium Chloride 1,000 ml @ 250 mls/hr ONCE ONCE IV 08/05/24 09:00 08/05/24 12:59 08/05/24 09:09 Vital Signs Date Time Temp Pulse Resp B/P (MAP) Pulse Ox O2 Delivery O2 Flow Rate FiO2 08/05/24 09:42 98.1 65 12 127/59 100 Room Air* 0 21 08/05/24 08:15 98.1 65 12 121/55 100 Room Air* 0 21 08/05/24 07:15 98.1 65 12 113/49 100 Room Air* 0 21 08/05/24 06:49 65 12 155/62 98 Room Air* 0 21 08/05/24 02:59 68 12 133/52 99 Room Air* 0 21 08/05/24 00:52 71 18 116/54 99 Room Air* 0 08/04/24 23:33 97.9 69 18 129/56 100 Room Air* 0 21 08/04/24 20:33 98.4 75 18 141/59 100 Room Air 0 Medical Decision Making MDM ddx: DVT versus septic joint versus fracture versus dislocation versus cellulitis versus septic bursitis White blood cell count has been in normal limits. Patient's CRP, ESR, procalcitonin are all elevated. Ultrasound of right upper extremity shows no evidence of DVT. X-ray of right upper extremity shows no fracture. Arthrocentesis performed and synovial fluid sent to lab. Upon re-evaluation, patient's symptoms have improved after draining fluids. Possible septic bursitis versus septic joint versus gout. We will sign off to a.m. ED physician. Pending cell count and culture Progress note by Dr. Francis Gross. I assumed care of this patient at 7:00 a.m, pending fluid Gram stain and white count from tap of the right elbow. I have reviewed the nursing notes, vital signs and available diagnostic studies. I have reviewed the charting completed by my colleague. I discussed the patient's condition with the . Results include a normal white count with a left shift, mild anemia, sed rate of 57 and CRP of 108. Procalcitonin is normal. CPK is 2848 and there was proteinuria [place]. [place] [address]. G stain is negative for organisms. IV fluids were started in the emergency department. At 9:38 a.m. I discussed the case with the primary care physician, Dr. Sol and arranged admission The patient will be admitted for further management of rhabdomyolysis and generalized weakness, acute right elbow pain and swelling Low index of suspicion for septic joint given dramatic improvement, lack of organisms and the fluid white count Chronic kidney disease is present and baseline. Patient is admitted because of high risk of worsening renal function in the setting of an acute inflammatory process in the elbow and rhabdomyolysis The family/patient has been advised regarding the reason for admission Questions were invited and answered in layman's terms. This dictation was prepared using [employer] voice recognition software. Occasional voice recognition errors may occur. When identified, these errors have been corrected. While every attempt is made to correct errors during dictation, errors may still exist. DX & DISP Disposition: Inpatient Decision to Admit Date: Aug 05, 2024 Decision to Admit Time: 09:20 Departure Impression: Primary Impression: Rhabdomyolysis Additional Impressions: Acute inflammatory process of the right elbow, Chronic renal insufficiency, Generalized weakness Condition: Stable Referrals: UMER SOL MD (PCP) JALEN MCKENNA DO Aug 05, 2024 06:51 FRANCIS GROSS MD Aug 05, 2024 11:56
[2024-08-05 08:38] LABS: BODY FLUID RBC 10474 /cu. mm.; BODY FLUID WBC 11699 /cu. mm.
[2024-08-05 08:40] LABS: APPEARANCE BODY FLUID TURBID (CLEAR); COLOR,BODY FLUID ORANGE (LT YELLOW); SPECIMENTYPE,BODY FLUID SYNOVIAL; TOTAL VOLUME,BODY FLUID 10 mL
[2024-08-05 08:43] LABS: BF LYMPHOCYTE 3 %; BF MONOCYTE 1 %; BF TOTAL CELLS COUNTED 100
--- NOTE | 2024-08-05 08:50 | HMCIMG ---
Elbow AP and lateral, right Clinical Information: PAIN SWELLING Comparison: None Findings: There is osteophytosis of the olecranon process. The rest of the elbow joint is preserved. The fat pads are not elevated. There is no evidence of joint effusion or hemarthrosis. There are no fractures. No blastic or lytic lesions are seen. The rest of the soft tissues are intact. There is adequate alignment. Impression: Olecranon spur.
[2024-08-05] MEDS: 0.9%NACL 1000ML 1,000 ML IV ONE (09:09)
[2024-08-05] MEDS: cefTRIAXone 1G VIAL IVPB SCH (11:49)
[2024-08-05] MEDS: Solu-medROL 40MG VIAL IVP ONE (11:49)
[2024-08-05 11:52] LABS: BASOPHILS # (AUTO) 0.03 K/uL (0.00-0.20); BASOPHILS % (AUTO) 0.4 % (0.0-5.0); EOSINOPHILS # (AUTO) 0.14 K/uL (0.00-0.70); EOSINOPHILS % (AUTO) 2.1 % (0.0-8.0); HEMATOCRIT 29.5 % (42-54); IMMATURE GRANULOCYTE ABSOLUTE 0.01 K/uL (0-1); LYMPHOCYTES # (AUTO) 1.4 K/uL (1.0-4.8); LYMPHOCYTES % (AUTO) 20.7 % (21.0-51.0); MEAN CORPUSCULAR HEMOGLOBIN 30.1 pg (27.0-33.0); MEAN CORPUSCULAR HGB CONC 32.2 g/dL (32.0-36.0); MEAN CORPUSCULAR VOLUME 93.4 fL (79-99); MONOCYTES # (AUTO) 0.6 K/uL (0.1-1.0); MONOCYTES % (AUTO) 8.8 % (3.0-13.0); NEUTROPHILS # (AUTO) 4.5 K/uL (1.8-7.7); NEUTROPHILS % (AUTO) 67.9 % (40.0-77.0); PLATELET COUNT (AUTO) 158 K/uL (130-400); RED BLOOD CELL COUNT(AUTO) 3.16 MIL/uL (4.50-6.20); RED CELL DISTRIBUTION WIDTH 13.5 % (11.0-15.5); WHITE BLOOD COUNT (AUTO) 6.7 K/uL (4.8-10.8)
[2024-08-05 12:05] LABS: CREATININE 1.7 mg/dL (0.5-1.3); POTASSIUM 4.4 mmol/L (3.5-5.1)
[2024-08-05] MEDS: 1/2 NS 1000ML 1,000 ML IV SCH (12:27)
--- NOTE | 2024-08-05 21:17 | NUR ---
REPORT GIVEN TO NURSE KENNEY AT THIS TIME, PATIENT PENDING TO BE TRANSFERRED TO ROOM 305, WILL CONT TO MONITOR
[2024-08-05 21:30] VITALS: BP 127/77; PULSE 85; RESP 18; TEMP 98.4
--- NOTE | 2024-08-05 22:11 | HP ---
HISTORY AND PHYSICAL NOTE DATE OF CONSULTATION: 08/05/24 REASON FOR CONSULTATION: weakness HISTORY OF PRESENT ILLNESS: This 84-year-old male's family member reports that he has a history of dementia with poor memory. There was an unwitnessed fall with right elbow pain sometime in the recent past. Family has noted severe weakness in the last three days much worse in the last 24 hours. He has decreased p.o. intake. They are unaware of fever, cough, vomiting or diarrhea. He does not smoke or drink. He lives at home with family Allergies: Coded Allergies: No Known Drug Allergies (Verified Allergy, 04/05/13) Home Meds Active Scripts Minocycline HCl (Minocycline HCl) 100 Mg Capsule, 1 CAP PO BID for 5 Days, #10 CAP 0 Refills Prov:VIJAYA CM MD 06/02/24 Reported Medications Folic Acid (Folic Acid) 0.8 Mg Capsule, 0.8 MG PO DAILY, CAP 06/01/24 Furosemide (Furosemide) 40 Mg Tablet, 40 MG PO DAILY, TAB 06/01/24 Sacubitril/Valsartan (Entresto 24 mg-26 mg Tablet) 24 Mg-26 Mg Tablet, 1 EACH PO BID, TAB 06/01/24 Ferrous Gluconate (Iron) 240 Mg (27 Mg Iron) Tablet, 240 MG PO DAILY, TAB 06/01/24 Atorvastatin Calcium (Atorvastatin Calcium) 40 Mg Tablet, 40 MG PO HS, TAB 01/20/20 Metoprolol Succinate (Metoprolol Succinate) 25 Mg Tab.er.24h, 25 MG PO DAILY, TAB 01/20/20 Aspirin (ASPIRIN 81 MG ECTAB) 81 Mg Ectab, 81 MG PO DAILY, TAB.EC 03/24/19 Glimepiride (Glimepiride) 2 Mg Tablet, 2 MG PO DAILY, TAB 10/02/16 Past Medical History Dictation 84-year-old male with past medical history of high blood pressure, high cholesterol, diabetes, CAD (cardiac bypass surgery), CHF presents with worsening right elbow pain. Patient states he fell over refill and since then the pain has become progressively worse in unbearable. Patient states he can not move his elbow at this time. Patient denies fevers, nausea, vomiting diaphoresis, syncope, presyncope, productive cough. Patient does report that the joint is red and swollen Past Medical History: CAD, Diabetes-Type II, High Cholesterol, Hypertension, VT, Other Additional Past Medical Hx: PROSTATE CANCER, DEFIBRILLATOR Surgical History: CABG, Pacer/AICD, Other Surgical History Other: HEART VALVE SX Review of System Dictation See HPI ALLERGIES: Coded Allergies: No Known Drug Allergies (Verified Allergy, 04/05/13) HOME MEDS: Active Scripts Minocycline HCl (Minocycline HCl) 100 Mg Capsule, 1 CAP PO BID for 5 Days, #10 CAP 0 Refills Prov:VIJAYA CM MD 06/02/24 Reported Medications Folic Acid (Folic Acid) 0.8 Mg Capsule, 0.8 MG PO DAILY, CAP 06/01/24 Furosemide (Furosemide) 40 Mg Tablet, 40 MG PO DAILY, TAB 06/01/24 Sacubitril/Valsartan (Entresto 24 mg-26 mg Tablet) 24 Mg-26 Mg Tablet, 1 EACH PO BID, TAB 06/01/24 Ferrous Gluconate (Iron) 240 Mg (27 Mg Iron) Tablet, 240 MG PO DAILY, TAB 06/01/24 Atorvastatin Calcium (Atorvastatin Calcium) 40 Mg Tablet, 40 MG PO HS, TAB 01/20/20 Metoprolol Succinate (Metoprolol Succinate) 25 Mg Tab.er.24h, 25 MG PO DAILY, TAB 01/20/20 Aspirin (ASPIRIN 81 MG ECTAB) 81 Mg Ectab, 81 MG PO DAILY, TAB.EC 03/24/19 Glimepiride (Glimepiride) 2 Mg Tablet, 2 MG PO DAILY, TAB 10/02/16 INPATIENT MEDS: Current Medications Medications Dose Ordered Sig/Graham Start Time Stop Time Status Last Admin Sodium Chloride 1,000 ml @ 125 mls/hr Q8H 08/05/24 11:00 09/04/24 10:59 08/05/24 12:27 Ceftriaxone Sodium 1 gm Q24H 08/05/24 11:00 08/15/24 10:59 08/05/24 11:49 VITAL SIGNS Vital Signs Date Time Temp Pulse Resp B/P (MAP) Pulse Ox O2 Delivery O2 Flow Rate FiO2 08/05/24 21:30 98.4 85 18 127/77 98 Room Air 08/05/24 20:02 99.7 70 20 132/66 Room Air* 0 21 08/05/24 17:48 98.1 68 12 118/59 100 Room Air* 0 21 08/05/24 16:11 98.1 70 12 131/56 100 Room Air* 0 21 08/05/24 13:30 98.1 70 12 129/64 100 Room Air* 0 21 08/05/24 12:35 98.1 65 12 121/52 100 Room Air* 0 21 08/05/24 09:42 98.1 65 12 127/59 100 Room Air* 0 21 08/05/24 08:15 98.1 65 12 121/55 100 Room Air* 0 21 08/05/24 07:15 98.1 65 12 113/49 100 Room Air* 0 21 08/05/24 06:49 65 12 155/62 98 Room Air* 0 21 08/05/24 02:59 68 12 133/52 99 Room Air* 0 21 08/05/24 00:52 71 18 116/54 99 Room Air* 0 21 08/04/24 23:33 97.9 69 18 129/56 100 Room Air* 0 21 PHYSICAL EXAM Initial Vital Sign VS Vital Signs Date Time Temp Pulse Resp B/P (MAP) Pulse Ox O2 Delivery O2 Flow Rate FiO2 08/04/24 20:33 98.4 75 18 141/59 100 Room Air 0 08/04/24 23:33 21 Physical Exam Dictation Acutely ill-appearing, acutely weak appearing, lungs clear to auscultation, symmetrical breath sounds, regular heart rate and rhythm, no murmurs rubs or gallops, abdomen is soft, nontender, non peritoneal, elbow is significant perfusion and erythema and inappropriate warmth. Periods pain with passive range of motion LABORATORY RESULTS Laboratory Tests 08/04/24 21:52: White Blood Count 9.6, Red Blood Count 3.55, Hemoglobin 10.7, Hematocrit 32.6, Mean Corpuscular Volume 91.8, Mean Corpuscular Hemoglobin 30.1, Mean Corpuscular Hemoglobin Concent 32.8, Red Cell Distribution Width 13.4, Platelet Count 198, Mean Platelet Volume 10.5, Immature Granulocyte % (Auto) 0.3, Neutrophils (%) (Auto) 75.4, Lymphocytes (%) (Auto) 14.5, Monocytes (%) (Auto) 8.7, Eosinophils (%) (Auto) 0.8, Basophils (%) (Auto) 0.3, Neutrophils # (Auto) 7.2, Lymphocytes # (Auto) 1.4, Monocytes # (Auto) 0.8, Eosinophils # (Auto) 0.08, Basophils # (Auto) 0.03, Absolute Immature Granulocyte (auto 0.03, Nucleated Red Blood Cells 0.0, Erythrocyte Sedimentation Rate 57, Sodium Level 141, Potassium Level 4.2, Chloride Level 109, Carbon Dioxide Level 27, Blood Urea Nitrogen 43, Creatinine 1.7, Glomerular Filtration Rate Calc 40, Random Glucose 79, Lactic Acid Level 1.2, Total Calcium 9.7, Total Creatine Kinase 2848, Troponin I High Sensitivity 60, C-Reactive Protein, Quantitative 108.00, Procalcitonin 0.12 08/04/24 23:13: Urine Color LIGHT-YELLOW, Urine Appearance CLEAR, Urine pH 5.5, Urine Specific Bieber 1.015, Urine Protein 30, Urine Glucose (UA) NEGATIVE, Urine Ketones NEGATIVE, Urine Occult Blood MODERATE, Urine Nitrate NEGATIVE, Urine Bilirubin NEGATIVE, Urine Urobilinogen 0.2, Urine Leukocyte Esterase NEGATIVE, Urine RBC 2-5, Urine WBC 2-5, Urine Bacteria None 08/05/24 05:12: Body Fluid Source SYNOVIAL, Body Fluid Volume 10, Body Fluid Color ORANGE, Body Fluid Supernatant Appearance TURBID, Body Fluid WBC 04487, Body Fluid RBC 08747, Body Fluid Neutrophils 96.0, Body Fluid Lymphocytes 3, Body Fluid Monocytes % 1 08/05/24 11:43: White Blood Count 6.7, Red Blood Count 3.16, Hemoglobin 9.5, Hematocrit 29.5, Mean Corpuscular Volume 93.4, Mean Corpuscular Hemoglobin 30.1, Mean Corpuscular Hemoglobin Concent 32.2, Red Cell Distribution Width 13.5, Platelet Count 158, Mean Platelet Volume 10.7, Immature Granulocyte % (Auto) 0.1, Neutrophils (%) (Auto) 67.9, Lymphocytes (%) (Auto) 20.7, Monocytes (%) (Auto) 8.8, Eosinophils (%) (Auto) 2.1, Basophils (%) (Auto) 0.4, Neutrophils # (Auto) 4.5, Lymphocytes # (Auto) 1.4, Monocytes # (Auto) 0.6, Eosinophils # (Auto) 0.14, Basophils # (Auto) 0.03, Absolute Immature Granulocyte (auto 0.01, Nucleated Red Blood Cells 0.0, Sodium Level 140, Potassium Level 4.4, Chloride Level 110, Carbon Dioxide Level 23, Blood Urea Nitrogen 48, Creatinine 1.7, Glomerular Filtration Rate Calc 40, Random Glucose 91, Total Calcium 9.4, Total Creatine Kinase 2154 Microbiology Date/Time Source Procedure Growth Status 08/05/24 05:12 Other Source Gram Stain - Final Resulted 08/05/24 05:12 Other Source Body Fluid Culture Pending Resulted 08/04/24 21:52 Blood Blood Culture - Preliminary NO GROWTH AFTER 24 HOURS Resulted PROBLEM LIST: (1) Generalized weakness ICD Codes: R53.1 - Weakness (2) Rhabdomyolysis ICD Codes: M62.82 - Rhabdomyolysis (3) Chronic renal insufficiency ICD Codes: N18.9 - Chronic kidney disease, unspecified PLAN hydrate and monitor UMER SOL MD Aug 05, 2024 22:11
[2024-08-05] MEDS ORDERED: TAMS-1 PO (22:59)
[2024-08-06 00:15] VITALS: BP 149/86; PULSE 77; RESP 18; TEMP 99
[2024-08-06 03:47] VITALS: BP 139/67; PULSE 75; RESP 18; TEMP 97.9
[2024-08-06 06:22] LABS: BASOPHILS # (AUTO) 0.03 K/uL (0.00-0.20); BASOPHILS % (AUTO) 0.4 % (0.0-5.0); EOSINOPHILS # (AUTO) 0.09 K/uL (0.00-0.70); EOSINOPHILS % (AUTO) 1.1 % (0.0-8.0); HEMATOCRIT 29.7 % (42-54); IMMATURE GRANULOCYTE ABSOLUTE 0.03 K/uL (0-1); LYMPHOCYTES # (AUTO) 0.9 K/uL (1.0-4.8); LYMPHOCYTES % (AUTO) 11.3 % (21.0-51.0); MEAN CORPUSCULAR HEMOGLOBIN 29.7 pg (27.0-33.0); MEAN CORPUSCULAR HGB CONC 31.6 g/dL (32.0-36.0); MONOCYTES # (AUTO) 0.5 K/uL (0.1-1.0); MONOCYTES % (AUTO) 6.5 % (3.0-13.0); NEUTROPHILS # (AUTO) 6.6 K/uL (1.8-7.7); NEUTROPHILS % (AUTO) 80.3 % (40.0-77.0); PLATELET COUNT (AUTO) 190 K/uL (130-400); RED BLOOD CELL COUNT(AUTO) 3.16 MIL/uL (4.50-6.20); RED CELL DISTRIBUTION WIDTH 13.2 % (11.0-15.5); WHITE BLOOD COUNT (AUTO) 8.2 K/uL (4.8-10.8)
[2024-08-06 08:00] VITALS: O2SAT 99
[2024-08-06 08:01] VITALS: BP 146/64; PULSE 69; RESP 18; TEMP 98.3
--- NOTE | 2024-08-06 10:47 | NUR ---
DISCHARGE PERIPHERAL IV DISCONTINUED. DISCHARGE INSTRUCTIONS PROVIDED TO PATIENT AND FAMILY. HOME MEDICATION LIST PROVIDED TO PATIENT AND FAMILY. PATIENT AND FAMILY ARE AWARE OF FOLLOW UP APPOINTMENT WITH DR. SOL 08/08/2024 AT 0800 A.M. ALL QUESTIONS ANSWERED.
--- NOTE | 2024-08-06 12:00 | DS ---
Discharge Summary DIAGNOSE(S): [Dehydration Rhabdomyolysis] HOSPITAL COURSE SUMMARY: [Patient improved with hydration kidney function improved and is discharged to be followed as an outpatient] QUANTITATIVE ANALYST DEVELOPER(S): [] PROCEDURE(S)/TREATMENT(S): [] PROBLEM(S): [] FOLLOW-UP TEST(S): [None] DISCHARGE INSTRUCTIONS: [Follow up in 1-2 days] Home Meds Active Scripts Minocycline HCl (Minocycline HCl) 100 Mg Capsule, 1 CAP PO BID for 5 Days, #10 CAP 0 Refills Prov:VIJAYA MC MD 06/02/24 Reported Medications Tamsulosin HCl (Flomax) 0.4 Mg Cap.er.24h, 1 CAP PO DAILY for 30 Days, #30 CAP 0 Refills 08/05/24 Folic Acid (Folic Acid) 0.8 Mg Capsule, 0.8 MG PO DAILY, CAP 06/01/24 Furosemide (Furosemide) 40 Mg Tablet, 40 MG PO DAILY, TAB 06/01/24 Sacubitril/Valsartan (Entresto 24 mg-26 mg Tablet) 24 Mg-26 Mg Tablet, 1 EACH PO BID, TAB 06/01/24 Ferrous Gluconate (Iron) 240 Mg (27 Mg Iron) Tablet, 240 MG PO DAILY, TAB 06/01/24 Atorvastatin Calcium (Atorvastatin Calcium) 40 Mg Tablet, 40 MG PO HS, TAB 01/20/20 Metoprolol Succinate (Metoprolol Succinate) 25 Mg Tab.er.24h, 25 MG PO DAILY, TAB 01/20/20 Aspirin (ASPIRIN 81 MG ECTAB) 81 Mg Ectab, 81 MG PO DAILY, TAB.EC 03/24/19 Glimepiride (Glimepiride) 2 Mg Tablet, 2 MG PO DAILY, TAB 10/02/16 UMER SOL MD Aug 06, 2024 12:00
== END 2024-08-06 11:05 | disposition home or self-care (01) ==
LOC: EDH 20:20 → EDHIP 08-05 10:57 → INTOOBSV 08-05 10:57 → 3BH 08-05 21:30
PROVIDERS: ADMIT Internal Medicine; ATTEND Internal Medicine
DX: E86.0 Dehydration (principal); M62.82 Rhabdomyolysis; I13.0 Hypertensive heart and chronic kidney disease with heart failure and stage 1 through stage 4 chronic kidney disease, or unspecified chronic kidney disease; E11.22 Type 2 diabetes mellitus with diabetic chronic kidney disease; I50.9 Heart failure, unspecified; N18.9 Chronic kidney disease, unspecified; M25.521 Pain in right elbow; F03.90 Unspecified dementia, unspecified severity, without behavioral disturbance, psychotic disturbance, mood disturbance, and anxiety; E78.5 Hyperlipidemia, unspecified; I25.10 Atherosclerotic heart disease of native coronary artery without angina pectoris; R60.0 Localized edema; I25.2 Old myocardial infarction; Z79.899 Other long term (current) drug therapy; Z95.1 Presence of aortocoronary bypass graft; Z85.46 Personal history of malignant neoplasm of prostate
CPT/HCPCS: 82550 ×3; 84484; 80048 ×2; 85025 ×3; 85651; 87040 ×2; 83605; 86140; 36415 ×3; 93971; 93005; 84145; 87071; 96361 ×2; 96365; 96375; 99285; 89051; 87086; 87205; 82948; 81001; 73080; G0378 ×24; J0696; J2919; J1885

== ENCOUNTER → 2024-09-02 | Outpatient (CLI) | payer OTHER, MEDICARE ==
[~2024-09-02] MED LIST changes: +TAMS-1 PO
--- NOTE | 2024-09-02 12:05 | HMCIMG ---
RIBS UNILAT 2V LT HISTORY: Slipped rib syndrome COMPARISON: None TECHNIQUE: 5 images of left ribs were obtained. FINDINGS: There is no acute displaced fracture or dislocation. Costal cartilage calcifications are seen. Degenerative changes are seen. IMPRESSION: 1. Findings as described above.
--- NOTE | 2024-09-02 12:05 | HMCIMG ---
KNEE/PATELLA 1-2VWS RT HISTORY: Status post fall COMPARISON: None TECHNIQUE: 2 images of right knee were obtained. FINDINGS: There is no acute displaced fracture or dislocation. Vascular calcifications are seen. Degenerative changes are seen. IMPRESSION: 1. Findings as described above.
== END | disposition home or self-care (01) ==
LOC: RAH 10:08
PROVIDERS: ATTEND Internal Medicine
DX: M17.11 Unilateral primary osteoarthritis, right knee (principal); M47.819 Spondylosis without myelopathy or radiculopathy, site unspecified; M89.8X8 Other specified disorders of bone, other site; M25.561 Pain in right knee; M94.0 Chondrocostal junction syndrome [Tietze]
CPT/HCPCS: 71100; 73560